=== PATIENT | male | born 1955 | race Caucasian/White ===

== ENCOUNTER 2022-02-23 09:11 | Inpatient (IN) | payer OTHER, MEDICAID ==
[~2022-02-23] VITALS: Ht 175.3 cm; Wt 84.2 kg
[2022-02-23 09:30] VITALS: BP 136/86
[2022-02-23] MEDS ORDERED: NITROGLYCERIN 0.4 MG SL TAB SL PRN (09:45)
[2022-02-23] MEDS ORDERED: MORPHINE SULFATE INJ 2 MG/ml SYRG IV PRN (09:45)
[2022-02-23] MEDS ORDERED: LIDOCAINE 2%HCL (LOCAL ANESTH.) INJ 20ML MDV ONE (10:17)
[2022-02-23] MEDS ORDERED: IODIXANOL 320MG/ML 100ML BTL IV ONE ×2 (10:17→10:58)
[2022-02-23] MEDS ORDERED: MIDAZOLAM HCL 2MG/2ML 2ml VIAL (1mg/ml) ONE (10:25)
[2022-02-23] MEDS ORDERED: fentaNYL CITRATE 100 MCG/2 ML VL ONE (10:25)
[2022-02-23] MEDS ORDERED: SODIUM CHL 0.9% 0 ML ONE (10:29)
[2022-02-23] MEDS ORDERED: ANGIOMAX 250 MG VIAL IV ONE ×2 (10:29→11:24)
[2022-02-23] MEDS ORDERED: EPTIFIBATIDE INJ (2MG/ML) 10ML VIAL IV ONE (10:46)
[2022-02-23] MEDS ORDERED: SODIUM CHL 0.9% 50 ML ONE (11:24)
[2022-02-23] MEDS ORDERED: TICAGRELOR 90 MG TAB ONE (11:27)
[2022-02-23 11:50] VITALS: BP 144/97
[2022-02-23 12:07] VITALS: BP 140/96
[2022-02-23] MEDS ORDERED: HYDROcodone-ACET 5/325MG TAB PO PRN ×2 (12:15→17:00)
[2022-02-23 12:22] VITALS: BP 138/93
[2022-02-23 12:41] VITALS: BP 142/89
[2022-02-23] MEDS: LORazepam 0.5 MG TAB PO PRN ×2 (13:22→21:21)
[2022-02-23] MEDS: SODIUM CHLOR 0.9% PF (SALINE LOCK) 10ML VIAL/SYR IV SCH ×2 (14:00→21:25)
[2022-02-23 15:30] LABS: Basophils # (auto) 0 10 ^3/uL (0-0.2); Basophils % (auto) 0.4 % (0.0-2.0); Eosinophils # (auto) 0 10 ^3/uL (0-0.8); Eosinophils % (auto) 0.5 % (0.0-7.0); Hematocrit 47.9 % (41.0-53.0); Hemoglobin 15.8 g/dL (13.5-17.5); Lymphocytes # (auto) 1.1 10 ^3/uL (0.4-5.4); Lymphocytes % (auto) 16.5 % (10.0-50.0); Mean Corpuscular Hgb Conc. 32.9 g/dL (32.0-36.0); Mean Corpuscular Volume 91.2 fL (80.0-100.0); Monocytes # (auto) 0.6 10 ^3/uL (0-1.3); Monocytes % (auto) 8.6 % (0.0-12.0); Red Blood Cells 5.25 10^6/uL (4.5-5.90); Red Cell Distribution Width 13.2 % (11.8-14.3); White Blood Cell 6.8 10^3/uL (4.4-10.8)
[2022-02-23 15:46] LABS: Calcium 9.5 mg/dL (8.5-10.1); Potassium 3.9 mmol/L (3.5-5.1)
[2022-02-23 15:48] LABS: BUN/Creatinine Ratio 12.5
[2022-02-23 15:57] LABS: INR 1.06 (0.9-1.15); Partial Thromboplastin Time 40.2 sec (24.6-33.4)
[2022-02-23] MEDS ORDERED: ONDANSETRON HCL 4 MG/2 ML VIAL IV PRN (17:00)
[2022-02-23] MEDS: PANTOPRAZOLE 40 MG/10 ML VIAL INJ IV SCH (17:38)
[2022-02-23] MEDS: MORPHINE SULFATE INJ 2 MG/ml SYRG IV PRN (17:39)
[2022-02-23] MEDS: ATORVASTATIN 20 MG TAB PO SCH (21:19)
[2022-02-23] MEDS: TICAGRELOR 90 MG TAB PO SCH (21:19)
[2022-02-23] MEDS: METOPROLOL TARTRATE 25 MG TAB PO SCH (21:20)
[2022-02-23 21:37] LABS: Alanine Aminotransferase 32 U/L (16-61); Aspartate Aminotransferase 41 U/L (15-37)
[2022-02-23 22:00] VITALS: BP 148/80
[2022-02-24 05:00] VITALS: BP 133/82
[2022-02-24] MEDS: SODIUM CHLOR 0.9% PF (SALINE LOCK) 10ML VIAL/SYR IV SCH ×3 (05:33→22:05)
[2022-02-24 09:28] VITALS: BP 131/81
[2022-02-24] MEDS: METOPROLOL TARTRATE 25 MG TAB PO SCH ×2 (11:12→22:07)
[2022-02-24] MEDS: PANTOPRAZOLE 40 MG/10 ML VIAL INJ IV SCH ×2 (11:13→22:04)
[2022-02-24] MEDS: ASPirin 81 mg TAB PO SCH (11:13)
[2022-02-24] MEDS: TICAGRELOR 90 MG TAB PO SCH ×2 (11:13→22:05)
[2022-02-24 13:48] VITALS: BP 122/83
[2022-02-24 16:25] VITALS: BP 143/83
[2022-02-24 22:00] VITALS: BP 135/89
[2022-02-24] MEDS: ATORVASTATIN 20 MG TAB PO SCH (22:06)
[2022-02-24] MEDS ORDERED: TEMAZEPAM 15 MG CAP PO ONE (22:15)
[2022-02-25 04:48] VITALS: BP 104/68
[2022-02-25] MEDS: SODIUM CHLOR 0.9% PF (SALINE LOCK) 10ML VIAL/SYR IV SCH ×3 (05:38→22:06)
[2022-02-25 06:33] LABS: Basophils # (auto) 0.1 10 ^3/uL (0-0.2); Basophils % (auto) 0.6 % (0.0-2.0); Eosinophils # (auto) 0.1 10 ^3/uL (0-0.8); Eosinophils % (auto) 1.5 % (0.0-7.0); Hematocrit 45.3 % (41.0-53.0); Hemoglobin 15.4 g/dL (13.5-17.5); Lymphocytes # (auto) 1.6 10 ^3/uL (0.4-5.4); Lymphocytes % (auto) 19.5 % (10.0-50.0); Mean Corpuscular Hemoglobin 30.4 pg (28.0-32.0); Mean Corpuscular Hgb Conc. 34.1 g/dL (32.0-36.0); Mean Corpuscular Volume 89.3 fL (80.0-100.0); Monocytes # (auto) 0.9 10 ^3/uL (0-1.3); Monocytes % (auto) 11.6 % (0.0-12.0); Neutrophils # (auto) 5.3 10 ^3/uL (1.6-8.6); Neutrophils % (auto) 66.8 % (37.0-80.0); Red Blood Cells 5.07 10^6/uL (4.5-5.90); Red Cell Distribution Width 13.3 % (11.8-14.3)
[2022-02-25 06:48] LABS: Calcium 9.5 mg/dL (8.5-10.1); Potassium 4.1 mmol/L (3.5-5.1)
[2022-02-25 06:50] LABS: BUN/Creatinine Ratio 28.9
[2022-02-25 07:30] VITALS: BP 111/71
[2022-02-25 09:51] LABS: Cholesterol 194 mg/dL (< 200); HDL Cholesterol 34 mg/dL (40-59); LDL Cholesterol 151 mg/dL (< 100); Triglycerides 122 mg/dL (< 150)
[2022-02-25] MEDS: ASPirin 81 mg TAB PO SCH (10:46)
[2022-02-25] MEDS: PANTOPRAZOLE 40 MG/10 ML VIAL INJ IV SCH ×2 (10:46→22:06)
[2022-02-25] MEDS: TICAGRELOR 90 MG TAB PO SCH ×2 (10:46→22:06)
[2022-02-25] MEDS: METOPROLOL TARTRATE 25 MG TAB PO SCH ×2 (10:47→22:00)
[2022-02-25] MEDS ORDERED: ZOLPIDEM TARTRATE 5 MG TAB PO PRN (11:15)
[2022-02-25 14:02] VITALS: BP 109/76
[2022-02-25 16:54] VITALS: BP 106/80
[2022-02-25 21:45] VITALS: BP 110/82
[2022-02-25] MEDS: ATORVASTATIN 20 MG TAB PO SCH (22:07)
[2022-02-26 04:47] VITALS: BP 114/76
[2022-02-26] MEDS: SODIUM CHLOR 0.9% PF (SALINE LOCK) 10ML VIAL/SYR IV SCH ×3 (06:00→21:50)
[2022-02-26 09:00] VITALS: BP 108/78
[2022-02-26] MEDS: TICAGRELOR 90 MG TAB PO SCH ×2 (10:00→21:28)
[2022-02-26] MEDS: METOPROLOL TARTRATE 25 MG TAB PO SCH ×2 (10:00→21:41)
[2022-02-26] MEDS: PANTOPRAZOLE 40 MG/10 ML VIAL INJ IV SCH ×3 (10:00→21:31)
[2022-02-26 13:00] VITALS: BP 124/79
[2022-02-26 17:00] VITALS: BP 138/85
[2022-02-26] MEDS: ASPirin 81 mg TAB PO SCH (17:56)
[2022-02-26] MEDS ORDERED: DEXTROSE (50%) 50ML SYRG IV PRN (19:00)
[2022-02-26] MEDS: MORPHINE SULFATE INJ 2 MG/ml SYRG IV PRN (20:53)
[2022-02-26] MEDS: ATORVASTATIN 20 MG TAB PO SCH (21:25)
[2022-02-26] MEDS: ACCU-CHEK COMFORT CURVE STRIP VI SCH (21:48)
[2022-02-26 22:00] VITALS: BP 124/80
[2022-02-26] MEDS ORDERED: InsuLIN REG 1unit/0.01ml Soln (100units/ml) SC SCH (22:00)
[2022-02-27 05:00] VITALS: BP 111/69
[2022-02-27] MEDS: SODIUM CHLOR 0.9% PF (SALINE LOCK) 10ML VIAL/SYR IV SCH ×2 (05:02→13:54)
[2022-02-27] MEDS: ACCU-CHEK COMFORT CURVE STRIP VI SCH ×2 (06:32→11:30)
[2022-02-27] MEDS: InsuLIN REG 1unit/0.01ml Soln (100units/ml) SC SCH ×2 (06:33→13:42)
[2022-02-27] MEDS ORDERED: LIDOCAINE 2%HCL (LOCAL ANESTH.) INJ 20ML MDV ONE (07:39)
[2022-02-27] MEDS ORDERED: IOHEXOL 350 MG/ML 100ML IJ ONE (07:39)
[2022-02-27] MEDS ORDERED: HEPARIN IN NS 1000Units/500mL 1,500 ML ONE (07:39)
[2022-02-27] MEDS ORDERED: ANGIOMAX 250 MG VIAL IV ONE (07:49)
[2022-02-27] MEDS ORDERED: MIDAZOLAM HCL 2MG/2ML 2ml VIAL (1mg/ml) ONE (07:49)
[2022-02-27] MEDS ORDERED: fentaNYL CITRATE 100 MCG/2 ML VL ONE (07:49)
[2022-02-27] MEDS ORDERED: SODIUM CHL 0.9% 50 ML ONE (07:50)
[2022-02-27 08:00] VITALS: BP 119/77
[2022-02-27 08:05] LABS: Urine Bacteria FEW /hpf (None Seen); Urine Blood Negative /uL (Negative); Urine Mucus FEW (None Seen); Urine Specific Gravity 1.034 (1.001-1.035); Urine WBC <1 /hpf (0 - 3)
[2022-02-27] MEDS ORDERED: ASPirin 81 mg TAB ONE (08:48)
[2022-02-27] MEDS ORDERED: TICAGRELOR 90 MG TAB ONE (08:49)
[2022-02-27 09:05] VITALS: BP 134/85
[2022-02-27 09:20] VITALS: BP 129/83
[2022-02-27] MEDS: TICAGRELOR 90 MG TAB PO SCH (09:28)
[2022-02-27] MEDS: ASPirin 81 mg TAB PO SCH (09:28)
[2022-02-27 09:35] VITALS: BP 124/80
[2022-02-27] MEDS: METOPROLOL TARTRATE 25 MG TAB PO SCH (09:39)
[2022-02-27 14:03] VITALS: BP 110/69
== END 2022-02-27 15:50 | disposition home or self-care (01) | DRG 246 ==
LOC: CENTRAL 09:49 → TELE-CENTR 19:49
PROVIDERS: ADMIT Specialist; ATTEND Family Medicine
PROC: 3E073PZ Introduction of Platelet Inhibitor into Coronary Artery, Percutaneous Approach (ICD-10-PCS; principal; 2022-02-23)
PROC: 027036Z Dilation of Coronary Artery, One Artery with Three Drug-eluting Intraluminal Devices, Percutaneous Approach (ICD-10-PCS; 2022-02-23)
PROC: B240ZZ3 Ultrasonography of Single Coronary Artery, Intravascular (ICD-10-PCS; 2022-02-23)
PROC: 4A023N7 Measurement of Cardiac Sampling and Pressure, Left Heart, Percutaneous Approach (ICD-10-PCS; 2022-02-23)
PROC: B211YZZ Fluoroscopy of Multiple Coronary Arteries using Other Contrast (ICD-10-PCS; 2022-02-23)
PROC: 027034Z Dilation of Coronary Artery, One Artery with Drug-eluting Intraluminal Device, Percutaneous Approach (ICD-10-PCS; 2022-02-27)
PROC: B240ZZ3 Ultrasonography of Single Coronary Artery, Intravascular (ICD-10-PCS; 2022-02-27)
PROC: B41G1ZZ Fluoroscopy of Left Lower Extremity Arteries using Low Osmolar Contrast (ICD-10-PCS; 2022-02-27)
DX: I21.4 Non-ST elevation (NSTEMI) myocardial infarction (principal); Z20.822 Contact with and (suspected) exposure to COVID-19; Z79.4 Long term (current) use of insulin; E11.65 Type 2 diabetes mellitus with hyperglycemia; I25.10 Atherosclerotic heart disease of native coronary artery without angina pectoris; I25.5 Ischemic cardiomyopathy
CPT/HCPCS: 36415; 71250; 73030; 73562; 73630; 74176; 80048; 80061; 81001; 82962; 84450; 84460; 85025; 85610; 85730; 86850; 86900; 86901; 87081; 93005; 99152; 99153; C1874; C9113; G0378; J1815; J2250; J2405; Q9967

== ENCOUNTER 2023-07-08 13:53 | Emergency (ER) | payer OTHER, MEDICAID ==
[~2023-07-08] VITALS: Ht 175.3 cm; Wt 84.0 kg
[2023-07-08 14:45] VITALS: TEMP 98.3; O2SAT 95
[2023-07-08] MEDS ORDERED: MORPHINE SULFATE 4 MG/ML SYR/VIAL IM ONE (15:45)
[2023-07-08 16:03] VITALS: BP 141/81; PULSE 72; RESP 18
[2023-07-08] MEDS ORDERED: MELO-335 PO (16:50)
[2023-07-08] MEDS ORDERED: ACET500T58 PO (16:50)
== END 2023-07-08 16:59 | disposition home or self-care (01) ==
LOC: ER 13:53
DX: M54.59 Other low back pain (principal); W19.XXXA Unspecified fall, initial encounter; Y93.89 Activity, other specified; Y92.89 Other specified places as the place of occurrence of the external cause; Y99.8 Other external cause status
CPT/HCPCS: 72070; 72100; 96372; 99284; J2270